=== PATIENT | male | born 1960 | race African-American/Black ===

== ENCOUNTER 2017-12-06 02:15 | Emergency (ER) | payer MEDICAID, OTHER ==
[~2017-12-06] VITALS: Ht 172.7 cm; Wt 68.0 kg
[2017-12-06 03:30] VITALS: BP 143/91
[2017-12-06] MEDS ORDERED: IBUPROFEN 400MG TABLET PO ONE (03:30)
== END 2017-12-06 03:40 | disposition home or self-care (01) ==
LOC: ER 02:15
DX: H60.8X1 Other otitis externa, right ear (principal); F12.10 Cannabis abuse, uncomplicated; J45.909 Unspecified asthma, uncomplicated; E78.00 Pure hypercholesterolemia, unspecified; I11.9 Hypertensive heart disease without heart failure
CPT/HCPCS: 99283

== ENCOUNTER 2018-12-29 21:03 | Emergency (ER) | payer OTHER ==
[~2018-12-29] VITALS: Ht 203.2 cm; Wt 69.0 kg
[2018-12-29] MEDS ORDERED: KETOROLAC 30MG/ML VIAL IV STA (22:59)
[2018-12-30 01:02] LABS: BASOPHILS % 1.2 % (0.0-2.0); EOSINOPHILS % 3.3 % (0.0-5.0); HEMOGLOBIN. 13.6 g/dL (14.0-18.0); LYMPHOCYTES % 38.4 % (20.0-50.0); MEAN CORPUSCULAR HEMOGLOBIN 30.6 pg (28.0-32.0); MEAN CORPUSCULAR VOLUME 90.1 fL (80.0-94.0); MEAN PLATELET VOLUME 8.3 fl (7.4-10.4); MONOCYTES % 12.3 % (2.0-8.0); NEUTROPHILS % 44.8 % (40.0-76.0); PLATELET 203 x1000/uL (130-400); RED BLOOD CELL COUNT 4.44 mill/uL (4.7-6.1); RED CELL DISTRIBUTION WIDTH 13.3 % (11.6-14.6)
[2018-12-30 01:18] LABS: CHLORIDE 106 mEq/L (98-107)
[2018-12-30] MEDS ORDERED: MORPHINE SULFATE 2 MG/ML CPJ (NOT FOR IM USE) IV ONE (04:00)
[2018-12-30 04:13] LABS: CLARITY URINE CLEAR (CLEAR); COLOR URINE YELLOW (YELLOW); KETONES URINE TRACE (NEGATIVE); LEUKOCYTE ESTERASE URINE NEGATIVE (NEGATIVE); NITRITE URINE NEGATIVE (NEGATIVE); OCCULT BLOOD URINE NEGATIVE (NEGATIVE); PROTEIN URINE TRACE (NEGATIVE); SPECIFIC GRAVITY URINE 1.029 (1.005-1.030); UROBILINOGEN URINE 0.2 E.U./dL (0.2-1.0)
[2018-12-30 04:51] LABS: *AMPHETAMINES SCREEN URINE NEGATIVE (NEGATIVE); *BARBITURATES SCREEN URINE NEGATIVE (NEGATIVE); *BENZODIAZEPINES SCREEN URINE NEGATIVE (NEGATIVE); *COCAINE SCREEN URINE PRESUMTIVE POSITIVE (NEGATIVE); METHADONE URINE SCREEN NEGATIVE (NEGATIVE); OPIATES URINE SCREEN NEGATIVE (NEGATIVE); PHENCYCLIDINE URINE SCREEN NEGATIVE (NEGATIVE)
[2018-12-30 04:52] LABS: CANNABINOID URINE SCREEN PRESUMTIVE POSITIVE (NEGATIVE)
[2018-12-30 05:08] VITALS: BP 158/92
== END 2018-12-30 05:36 | disposition home or self-care (01) ==
LOC: ER 21:12
DX: M51.27 Other intervertebral disc displacement, lumbosacral region (principal); G89.29 Other chronic pain; M54.30 Sciatica, unspecified side; F12.10 Cannabis abuse, uncomplicated; Z86.73 Personal history of transient ischemic attack (TIA), and cerebral infarction without residual deficits
CPT/HCPCS: 36415; 72148; 80053; 80305; 81003; 83690; 85025; 96374; 96375; 99283; J1885; J2270

== ENCOUNTER 2019-01-19 20:10 | Emergency (ER) | payer OTHER ==
[~2019-01-19] VITALS: Ht 172.7 cm; Wt 69.0 kg
[2019-01-19] MEDS: DEXAMETHASONE 10 MG/ML VIAL IM ONE (21:21)
[2019-01-19] MEDS: KETOROLAC 60MG/2ML VIAL IM ONE (21:21)
[2019-01-19 22:07] VITALS: BP 145/84
== END 2019-01-19 22:07 | disposition home or self-care (01) ==
LOC: ER 20:10
DX: M54.41 Lumbago with sciatica, right side (principal); J45.909 Unspecified asthma, uncomplicated; I10 Essential (primary) hypertension; Z86.73 Personal history of transient ischemic attack (TIA), and cerebral infarction without residual deficits
CPT/HCPCS: 96372; 99283; J1100; J1885